=== PATIENT | male | born 1970 | race Caucasian/White ===

== ENCOUNTER 2016-08-07 18:27 | Emergency (ER) | payer OTHER ==
[~2016-08-07] VITALS: Ht 177.8 cm; Wt 127.0 kg
[2016-08-07 19:09] VITALS: BP 143/98
--- NOTE | 2016-08-07 19:20 | NUR ---
PT. AMBULATE TO ER BED 4
--- NOTE | 2016-08-07 19:34 | NUR ---
Mena alvarado in ED - 08/07/16 at [address] Pennington evaluating patient at bedside.
--- NOTE | 2016-08-07 19:41 | NUR ---
46Y/M PATIENT PRESENTS TO ED WITH C/O UPPER BACK PAIN X 2 DAYS . PT STATES HAVING CHRONIC BACK PAIN, WAS DIAGNOSED HNP L4-5, TODAY PAIN INCREASES WITH FEELING NAUSEA . DENIES N/V/D; SKIN IS PINK/WARM/DRY; AAOX4 WITH EVEN AND STEADY GAIT; LUNGS CLEAR BL; HR EVEN AND REGULAR; PT DENIES ANY FEVER, CP, SOB, OR COUGH AT THIS TIME; PATIENT STATES PAIN OF 10/10 AT THIS TIME; VSS; PATIENT POSITIONED FOR COMFORT; HOB ELEVATED; BEDRAILS UP X2; BED DOWN. ER MD MADE AWARE OF PT STATUS.
--- NOTE | 2016-08-07 20:14 | NUR ---
Dr. Pennington evaluating patient at bedside.
[2016-08-07] MEDS ORDERED: fentaNYL 0.05 MG/ML VIAL IM ONE (20:20)
--- NOTE | 2016-08-07 20:50 | NUR ---
Patient discharged with v/s stable. Written and verbal after care instructions given and explained. Patient alert, oriented and verbalized understanding of instructions. Ambulatory with steady gait. All questions addressed prior to discharge. ID band removed. Patient advised to follow up with PMD. Rx of FLEXERIL 10 MG, TRAMADOL 50 MG given. Patient educated on indication of medication including possible reaction and side effects. Opportunity to ask questions provided and answered.
[2016-08-07 20:58] VITALS: BP 145/79
== END 2016-08-07 20:50 | disposition home or self-care (01) ==
LOC: MED 18:27
DX: S29.012A Strain of muscle and tendon of back wall of thorax, initial encounter (principal); R03.0 Elevated blood-pressure reading, without diagnosis of hypertension; F17.210 Nicotine dependence, cigarettes, uncomplicated; F10.10 Alcohol abuse, uncomplicated; Z98.890 Other specified postprocedural states; X58.XXXA Exposure to other specified factors, initial encounter; Y93.89 Activity, other specified; Y92.89 Other specified places as the place of occurrence of the external cause; Y99.8 Other external cause status
CPT/HCPCS: 71010; 96372; 99283; J3010; Q0092